=== PATIENT | male | born 1945 | race Caucasian/White ===

== ENCOUNTER 2021-06-29 12:58 | Inpatient (IN) | payer MEDICARE ==
[~2021-06-29] VITALS: Ht 172.7 cm; Wt 105.5 kg
[2021-06-29] MEDS ORDERED: dexamethasone sod phosphate 10mg/ml inj IV STA (13:09)
[2021-06-29] MEDS ORDERED: albuterol 2.5 MG/3 ML nebule CONTNEB PRN (13:10)
[2021-06-29 13:21] LABS: BASOPHILS % (AUTO) 0.6 % (0-1); EOSINOPHILS % (AUTO) 0.3 % (0-6); HEMATOCRIT 45.9 % (42.0-52.0); HEMOGLOBIN 14.9 g/dl (14.0-17.9); LYMPHOCYTES # (AUTO) 0.7 X10'3 (1.1-4.8); LYMPHOCYTES % (AUTO) 18.4 % (21-51); MEAN CORPUSCULAR HEMOGLOBIN 29.9 PG (27.0-31.0); MEAN CORPUSCULAR HGB CONC 32.5 g/dL (33.0-36.5); MEAN CORPUSCULAR VOLUME 91.9 FL (78-98); MEAN PLATELET VOLUME 8.3 FL (7.4-10.4); MONOCYTES # (AUTO) 0.4 X10'3 (0-0.9); MONOCYTES % (AUTO) 9.5 % (2-12); NEUTROPHILS # (AUTO) 2.7 X10'3 (1.8-7.7); NEUTROPHILS % (AUTO) 71.2 % (42-75); PLATELET COUNT 119 X10'3 (140-440); RED CELL DISTRIBUTION WIDTH 14.9 % (11.5-14.5); WHITE BLOOD COUNT 3.8 X10'3 (4.5-11.0)
[2021-06-29 13:37] LABS: ALBUMIN 3.1 G/DL (3.4-5.0); ANION GAP 7 (8-16); BLOOD UREA NITROGEN 42 MG/DL (7-18); BUN/CREATININE RATIO 19.9 (5.4-32.0); CALCIUM 8.1 MG/DL (8.5-10.1); CHLORIDE 102 MMOL/L (99-107); CREATININE 2.11 MG/DL (0.60-1.10); GLUCOSE 245 MG/DL (70-104); POTASSIUM 4.2 MMOL/L (3.5-5.1); SODIUM 140 MMOL/L (135-145); TOTAL CARBON DIOXIDE 30.9 MMOL/L (24-32); TROPONIN I < 0.04 NG/ML (0.0-0.05); eGFR 31 ML/MIN
[2021-06-29] MEDS ORDERED: ondansetron/PF 4mg/2ml inj IV PRN (13:55)
[2021-06-29] MEDS ORDERED: magnesium hydroxide 30ml (MOM) UD suspension PO PRN (13:55)
[2021-06-29] MEDS ORDERED: mag hydrox/Alum hydrox/simeth 30ml oral suspension PO PRN (13:55)
[2021-06-29] MEDS ORDERED: acetaminophen 325mg tablet PO PRN (13:55)
[2021-06-29] MEDS ORDERED: ALLO300T8 PO (15:04)
[2021-06-29] MEDS ORDERED: HYDR-3968 PO (15:04)
[2021-06-29] MEDS ORDERED: FAMO20TA8 PO (15:04)
[2021-06-29] MEDS ORDERED: LEVO50TA8 PO (15:04)
[2021-06-29] MEDS ORDERED: GLIM2TAB6 PO (15:04)
[2021-06-29] MEDS ORDERED: FLO0.4C PO (15:04)
[2021-06-29] MEDS ORDERED: GABA600T13 PO (15:04)
[2021-06-29] MEDS ORDERED: METF-950 PO (15:04)
[2021-06-29] MEDS ORDERED: PRAV40TA3 PO (15:04)
[2021-06-29] MEDS ORDERED: ROPI0.2540 PO (15:04)
[2021-06-29] MEDS ORDERED: LISI1TAB51 PO (15:04)
[2021-06-29] MEDS: normal saline 1000ml 1,000 ML IV SCH ×2 (15:23→23:41)
[2021-06-29 17:15] VITALS: BP 114/69
--- NOTE | 2021-06-29 17:40 | NUR ---
Dr Mckay has seen patient. I pointed out rhythm not looking like sinus. Dr Mckay says it is fine, he is having no chest pain. Will monitor.
--- NOTE | 2021-06-29 17:42 | NUR ---
Trops in ED were also negative.
[2021-06-29] MEDS ORDERED: dextrose 50%-water 50ml dispensing syringe IV PRN ×2 (17:45)
[2021-06-29] MEDS ORDERED: dextrose ORAL solution 15 GM/59 ML bottle PO PRN ×2 (17:45)
[2021-06-29] MEDS ORDERED: MESSAGE TO PHARMACY PO ONE (17:45)
[2021-06-29] MEDS ORDERED: glucagon, human recombinant 1mg kit SUBCUT PRN (17:45)
[2021-06-29 18:00] VITALS: BP 110/69
--- NOTE | 2021-06-29 18:00 | NUR ---
Report given to Jenelle HANKINS. All questions answered. Pt finished eating dinner. Sitting up, no changes at this time. Awake and alert, no distress
--- NOTE | 2021-06-29 18:30 | NUR ---
Patient in room COVID 08. I have received report from Margoth HANKINS and had the opportunity to ask questions and assume patient care.
[2021-06-29] MEDS: insulin Lispro (HumaLOG) vial - multi-dose SQ SCH ×2 (19:51→22:46)
[2021-06-29] MEDS: docusate sod 100mg capsule PO SCH (20:10)
[2021-06-29] MEDS: dexamethasone sod phosphate 10mg/ml inj IV SCH (20:10)
[2021-06-29] MEDS: gabapentin 300mg capsule PO SCH (20:11)
[2021-06-29] MEDS: ROPINIRole 0.25mg tablet PO SCH (20:12)
[2021-06-29] MEDS: enoxaparin 30mg/0.3ml syringe SQ SCH (20:15)
[2021-06-29 22:00] VITALS: BP 125/71
[2021-06-29] MEDS: insulin glargine (Lantus) pen - multi-dose SQ SCH (22:43)
[2021-06-30 02:00] VITALS: BP 107/78
[2021-06-30 06:23] LABS: BASOPHILS % (AUTO) 0.2 % (0-1); EOSINOPHILS % (AUTO) 0 % (0-6); HEMOGLOBIN 14.7 g/dl (14.0-17.9); LYMPHOCYTES # (AUTO) 0.6 X10'3 (1.1-4.8); LYMPHOCYTES % (AUTO) 14.3 % (21-51); MEAN CORPUSCULAR HGB CONC 32.6 g/dL (33.0-36.5); MEAN CORPUSCULAR VOLUME 91.9 FL (78-98); MEAN PLATELET VOLUME 8.5 FL (7.4-10.4); MONOCYTES # (AUTO) 0.3 X10'3 (0-0.9); MONOCYTES % (AUTO) 6.5 % (2-12); NEUTROPHILS # (AUTO) 3.1 X10'3 (1.8-7.7); PLATELET COUNT 133 X10'3 (140-440); RED BLOOD COUNT 4.89 X10'6 (4.70-6.10); RED CELL DISTRIBUTION WIDTH 15.1 % (11.5-14.5); WHITE BLOOD COUNT 3.9 X10'3 (4.5-11.0)
--- NOTE | 2021-06-30 06:30 | NUR ---
Patient in room COVID 08. I have received report from Jenelle HANKINS and had the opportunity to ask questions and assume patient care.
--- NOTE | 2021-06-30 06:30 | NUR ---
Problems reprioritized. Patient report given, questions answered & plan of care reviewed with Jeanmarie RN.
[2021-06-30 06:40] LABS: D-DIMER 0.36 MG/L FEU (0-0.50)
[2021-06-30 06:44] LABS: ALBUMIN 2.8 G/DL (3.4-5.0); ANION GAP 9 (8-16); BLOOD UREA NITROGEN 40 MG/DL (7-18); BUN/CREATININE RATIO 27.8 (5.4-32.0); C-REACTIVE PROTEIN 7.24 MG/DL (0.0-0.5); CALCIUM 7.9 MG/DL (8.5-10.1); CHLORIDE 105 MMOL/L (99-107); CREATININE 1.44 MG/DL (0.60-1.10); GLUCOSE 356 MG/DL (70-104); LACTATE DEHYDROGENASE 299 U/L (85-227); POTASSIUM 4.6 MMOL/L (3.5-5.1); SODIUM 140 MMOL/L (135-145); TOTAL CARBON DIOXIDE 26.1 MMOL/L (24-32); eGFR 47 ML/MIN
[2021-06-30 08:00] VITALS: BP 125/74
[2021-06-30] MEDS: pravastatin 40mg tablet PO SCH (08:43)
[2021-06-30] MEDS: dexamethasone sod phosphate 10mg/ml inj IV SCH (08:43)
[2021-06-30] MEDS: docusate sod 100mg capsule PO SCH (08:43)
[2021-06-30] MEDS: HYDROchlorothiazide 12.5mg capsule PO SCH (08:44)
[2021-06-30] MEDS: famotidine 20mg tablet PO SCH (08:44)
[2021-06-30] MEDS: tamsulosin 0.4mg capsule PO SCH (08:44)
[2021-06-30] MEDS: levoTHYROXINE 25mcg tablet PO SCH (08:46)
[2021-06-30] MEDS: gabapentin 300mg capsule PO SCH ×3 (08:47→21:17)
[2021-06-30] MEDS: allopurinol 300 MG tablet PO SCH (08:47)
[2021-06-30] MEDS: lisinopril 20mg tablet PO SCH (08:48)
[2021-06-30] MEDS: enoxaparin 30mg/0.3ml syringe SQ SCH ×2 (08:49→21:17)
[2021-06-30] MEDS: insulin Lispro (HumaLOG) vial - multi-dose SQ SCH ×4 (09:00→22:09)
[2021-06-30] MEDS: normal saline 1000ml 1,000 ML IV SCH ×2 (10:16→21:17)
[2021-06-30 11:28] VITALS: BP 117/67
--- NOTE | 2021-06-30 12:56 | NUR ---
Diabetes Consult: A1C 9. Pt admitted w/ +DANK. Communicated w/ Pt via TC to provide verbal diabetes education, pt was receptive of information and states he needs to make changes in his lifestyle. Will provide Pt w/ written education w/ RD contact info via mail. Will continue to monitor. Addendum: 06/30/21 at [address] Amended: Links added.
[2021-06-30 16:01] VITALS: BP 120/67
[2021-06-30] MEDS: methylPREDNISolone sod succ 125mg/2ml vial IV SCH (16:09)
--- NOTE | 2021-06-30 18:30 | NUR ---
Patient in room COVID 08. I have received report from Jeanmarie HANKINS and had the opportunity to ask questions and assume patient care.
[2021-06-30 20:00] VITALS: BP 110/73
--- NOTE | 2021-06-30 20:23 | NUR ---
Patients daughter Raimundo called to check in on patients progress. Pt. gave the OK to release information. Will add her name to S BAR
[2021-06-30] MEDS: ROPINIRole 0.25mg tablet PO SCH (21:18)
[2021-06-30] MEDS: insulin glargine (Lantus) pen - multi-dose SQ SCH (22:10)
[2021-07-01 00:30] VITALS: BP 136/84
[2021-07-01] MEDS: methylPREDNISolone sod succ 125mg/2ml vial IV SCH ×3 (00:55→16:26)
[2021-07-01 04:50] VITALS: BP 112/88
[2021-07-01] MEDS: normal saline 1000ml 1,000 ML IV SCH (05:34)
--- NOTE | 2021-07-01 06:25 | NUR ---
Problems reprioritized. Patient report given, questions answered & plan of care reviewed with Fransico HANKINS.
[2021-07-01] MEDS: tamsulosin 0.4mg capsule PO SCH (08:00)
[2021-07-01 08:40] LABS: BASOPHILS % (AUTO) 0.1 % (0-1); EOSINOPHILS % (AUTO) 0 % (0-6); HEMATOCRIT 47.4 % (42.0-52.0); HEMOGLOBIN 15.4 g/dl (14.0-17.9); LYMPHOCYTES # (AUTO) 0.8 X10'3 (1.1-4.8); LYMPHOCYTES % (AUTO) 10.4 % (21-51); MEAN CORPUSCULAR HEMOGLOBIN 29.8 PG (27.0-31.0); MEAN CORPUSCULAR HGB CONC 32.5 g/dL (33.0-36.5); MEAN CORPUSCULAR VOLUME 91.6 FL (78-98); MEAN PLATELET VOLUME 8.6 FL (7.4-10.4); MONOCYTES # (AUTO) 0.6 X10'3 (0-0.9); MONOCYTES % (AUTO) 7.2 % (2-12); NEUTROPHILS # (AUTO) 6.5 X10'3 (1.8-7.7); NEUTROPHILS % (AUTO) 82.3 % (42-75); PLATELET COUNT 129 X10'3 (140-440); RED BLOOD COUNT 5.18 X10'6 (4.70-6.10); RED CELL DISTRIBUTION WIDTH 14.9 % (11.5-14.5); WHITE BLOOD COUNT 7.9 X10'3 (4.5-11.0)
[2021-07-01 09:02] LABS: ALBUMIN 2.7 G/DL (3.4-5.0); ANION GAP 10 (8-16); BLOOD UREA NITROGEN 39 MG/DL (7-18); BUN/CREATININE RATIO 28.7 (5.4-32.0); CALCIUM 7.6 MG/DL (8.5-10.1); CHLORIDE 107 MMOL/L (99-107); CREATININE 1.36 MG/DL (0.60-1.10); GLUCOSE 255 MG/DL (70-104); POTASSIUM 4.2 MMOL/L (3.5-5.1); SODIUM 143 MMOL/L (135-145); eGFR 51 ML/MIN
[2021-07-01] MEDS: docusate sodium 100mg/10ml UD cup PO SCH ×2 (09:22→22:39)
[2021-07-01] MEDS: enoxaparin 30mg/0.3ml syringe SQ SCH ×2 (09:22→22:40)
[2021-07-01] MEDS: levoTHYROXINE 25mcg tablet PO SCH (09:23)
[2021-07-01] MEDS: lisinopril 20mg tablet PO SCH (09:23)
[2021-07-01] MEDS: famotidine 20mg tablet PO SCH (09:23)
[2021-07-01] MEDS: gabapentin 300mg capsule PO SCH ×3 (09:23→22:40)
[2021-07-01] MEDS: pravastatin 40mg tablet PO SCH (09:24)
[2021-07-01] MEDS: HYDROchlorothiazide 12.5mg capsule PO SCH (09:24)
[2021-07-01] MEDS: allopurinol 300 MG tablet PO SCH (09:24)
[2021-07-01] MEDS: insulin Lispro (HumaLOG) vial - multi-dose SQ SCH ×3 (09:38→22:37)
[2021-07-01] MEDS: furosemide 20 MG/2 ML vial IV SCH (10:50)
[2021-07-01 19:00] VITALS: BP 124/63
[2021-07-01] MEDS: insulin glargine (Lantus) pen - multi-dose SQ SCH (22:39)
[2021-07-01] MEDS: ROPINIRole 0.25mg tablet PO SCH (22:40)
[2021-07-02] VITALS: BP 148/94
[2021-07-02] MEDS: methylPREDNISolone sod succ 125mg/2ml vial IV SCH ×3 (00:59→16:57)
[2021-07-02] MEDS: guaiFENesin/DM 10ml UD oral syrup PO PRN (05:20)
[2021-07-02] MEDS: HYDROcodone/acetaminophen 7.5MG/325MG per 15ml UD CUP PO PRN ×2 (05:34→22:21)
--- NOTE | 2021-07-02 05:35 | NUR ---
Patient states he has not seen an MD and would like to speak with him today. States he has been lying in bed for 7 days, needs bolts in his back, has torn meniscus in left knee and cannot lay in bed like this. Advised we have pain medication we can give him, he simply needs to ask when he's painful. Patient also given robitussin for cough. Patient has developed rust colored sputum.
--- NOTE | 2021-07-02 06:15 | NUR ---
Patient in room COVID 08. I have received report from Clover HANKINS and had the opportunity to ask questions and assume patient care.
--- NOTE | 2021-07-02 06:44 | NUR ---
Problems reprioritized. Patient report given, questions answered & plan of care reviewed with CR Carlson.
[2021-07-02 08:00] VITALS: BP 138/88
[2021-07-02] MEDS: HYDROchlorothiazide 12.5mg capsule PO SCH (08:10)
[2021-07-02] MEDS: gabapentin 300mg capsule PO SCH ×3 (08:10→22:09)
[2021-07-02] MEDS: tamsulosin 0.4mg capsule PO SCH (08:11)
[2021-07-02] MEDS: lisinopril 20mg tablet PO SCH (08:11)
[2021-07-02] MEDS: famotidine 20mg tablet PO SCH (08:11)
[2021-07-02] MEDS: docusate sodium 100mg/10ml UD cup PO SCH ×2 (08:11→19:54)
[2021-07-02] MEDS: levoTHYROXINE 25mcg tablet PO SCH (08:11)
[2021-07-02] MEDS: furosemide 20 MG/2 ML vial IV SCH ×2 (08:12→19:48)
[2021-07-02] MEDS: pravastatin 40mg tablet PO SCH (08:14)
[2021-07-02] MEDS: allopurinol 300 MG tablet PO SCH (08:14)
[2021-07-02 08:36] LABS: BASOPHILS % (AUTO) 0.1 % (0-1); EOSINOPHILS % (AUTO) 0 % (0-6); HEMATOCRIT 46.3 % (42.0-52.0); HEMOGLOBIN 14.9 g/dl (14.0-17.9); LYMPHOCYTES # (AUTO) 0.6 X10'3 (1.1-4.8); LYMPHOCYTES % (AUTO) 7.5 % (21-51); MEAN CORPUSCULAR HEMOGLOBIN 29.6 PG (27.0-31.0); MEAN CORPUSCULAR HGB CONC 32.1 g/dL (33.0-36.5); MEAN CORPUSCULAR VOLUME 92.2 FL (78-98); MEAN PLATELET VOLUME 8.7 FL (7.4-10.4); MONOCYTES # (AUTO) 0.6 X10'3 (0-0.9); MONOCYTES % (AUTO) 7.5 % (2-12); NEUTROPHILS # (AUTO) 6.6 X10'3 (1.8-7.7); NEUTROPHILS % (AUTO) 84.9 % (42-75); PLATELET COUNT 161 X10'3 (140-440); RED BLOOD COUNT 5.02 X10'6 (4.70-6.10); RED CELL DISTRIBUTION WIDTH 15.4 % (11.5-14.5); WHITE BLOOD COUNT 7.8 X10'3 (4.5-11.0)
[2021-07-02 09:00] LABS: ALBUMIN 2.6 G/DL (3.4-5.0); ANION GAP 10 (8-16); BLOOD UREA NITROGEN 34 MG/DL (7-18); BUN/CREATININE RATIO 27.4 (5.4-32.0); CALCIUM 7.7 MG/DL (8.5-10.1); CHLORIDE 106 MMOL/L (99-107); CREATININE 1.24 MG/DL (0.60-1.10); GLUCOSE 324 MG/DL (70-104); POTASSIUM 3.8 MMOL/L (3.5-5.1); SODIUM 147 MMOL/L (135-145); TOTAL CARBON DIOXIDE 30.6 MMOL/L (24-32); eGFR 56 ML/MIN
[2021-07-02] MEDS: insulin Lispro (HumaLOG) vial - multi-dose SQ SCH ×4 (09:22→22:17)
[2021-07-02] MEDS: enoxaparin 30mg/0.3ml syringe SQ SCH ×2 (10:25→19:54)
--- NOTE | 2021-07-02 17:27 | NUR ---
PAGER ID: [phone] MESSAGE: Re: Deshawn Morrow. Room: [address] Pt wants a sleep aid for tonight. Can I put order in for [facility]? -[facility] COVID #[id number] -Dr. Anna paged concerning Sleep aid for Pt.
--- NOTE | 2021-07-02 18:40 | NUR ---
Problems reprioritized. Patient report given, questions answered & plan of care reviewed with Dell HANKINS.
--- NOTE | 2021-07-02 19:18 | NUR ---
I have received report from CR Duran and had the opportunity to ask questions and assume patient care.
[2021-07-02 20:00] VITALS: BP 136/65
[2021-07-02] MEDS: ROPINIRole 0.25mg tablet PO SCH (22:08)
[2021-07-02] MEDS: insulin glargine (Lantus) pen - multi-dose SQ SCH (22:19)
[2021-07-03] VITALS: BP 142/90
[2021-07-03 05:59] LABS: ALBUMIN 2.5 G/DL (3.4-5.0); ANION GAP 9 (8-16); BLOOD UREA NITROGEN 35 MG/DL (7-18); BUN/CREATININE RATIO 30.4 (5.4-32.0); CALCIUM 8.3 MG/DL (8.5-10.1); CHLORIDE 104 MMOL/L (99-107); CREATININE 1.15 MG/DL (0.60-1.10); GLUCOSE 218 MG/DL (70-104); POTASSIUM 3.4 MMOL/L (3.5-5.1); SODIUM 145 MMOL/L (135-145); TOTAL CARBON DIOXIDE 32.3 MMOL/L (24-32); eGFR 62 ML/MIN
[2021-07-03 06:03] LABS: BASOPHILS % (AUTO) 0.2 % (0-1); EOSINOPHILS % (AUTO) 0 % (0-6); HEMATOCRIT 50.1 % (42.0-52.0); HEMOGLOBIN 16.4 g/dl (14.0-17.9); LYMPHOCYTES # (AUTO) 0.5 X10'3 (1.1-4.8); LYMPHOCYTES % (AUTO) 5.9 % (21-51); MEAN CORPUSCULAR HGB CONC 32.8 g/dL (33.0-36.5); MEAN CORPUSCULAR VOLUME 91.4 FL (78-98); MEAN PLATELET VOLUME 8.6 FL (7.4-10.4); MONOCYTES # (AUTO) 0.6 X10'3 (0-0.9); MONOCYTES % (AUTO) 6.6 % (2-12); NEUTROPHILS # (AUTO) 8.1 X10'3 (1.8-7.7); NEUTROPHILS % (AUTO) 87.3 % (42-75); PLATELET COUNT 193 X10'3 (140-440); RED BLOOD COUNT 5.48 X10'6 (4.70-6.10); WHITE BLOOD COUNT 9.2 X10'3 (4.5-11.0)
[2021-07-03 08:00] VITALS: BP 129/78
--- NOTE | 2021-07-03 08:20 | NUR ---
Problems reprioritized. Patient report given, questions answered & plan of care reviewed with Raimundo HANKINS
[2021-07-03] MEDS: methylPREDNISolone sod succ 125mg/2ml vial IV SCH ×4 (10:50→23:22)
[2021-07-03] MEDS: furosemide 20 MG/2 ML vial IV SCH ×2 (10:50→20:07)
[2021-07-03] MEDS: docusate sodium 100mg/10ml UD cup PO SCH ×2 (10:51→20:07)
[2021-07-03] MEDS: tamsulosin 0.4mg capsule PO SCH (10:51)
[2021-07-03] MEDS: HYDROcodone/acetaminophen 7.5MG/325MG per 15ml UD CUP PO PRN ×2 (10:51→23:23)
[2021-07-03] MEDS: enoxaparin 30mg/0.3ml syringe SQ SCH ×2 (10:51→20:07)
[2021-07-03] MEDS: allopurinol 300 MG tablet PO SCH (10:51)
[2021-07-03] MEDS: famotidine 20mg tablet PO SCH (10:52)
[2021-07-03] MEDS: pravastatin 40mg tablet PO SCH (10:52)
[2021-07-03] MEDS: lisinopril 20mg tablet PO SCH (10:52)
[2021-07-03] MEDS: levoTHYROXINE 25mcg tablet PO SCH (10:52)
[2021-07-03] MEDS: gabapentin 300mg capsule PO SCH ×2 (10:52→12:43)
[2021-07-03] MEDS: HYDROchlorothiazide 12.5mg capsule PO SCH (10:52)
[2021-07-03 11:33] VITALS: BP 146/77
[2021-07-03 13:02] LABS: D-DIMER 0.74 MG/L FEU (0-0.50)
[2021-07-03] MEDS: insulin Lispro (HumaLOG) vial - multi-dose SQ SCH ×3 (13:11→22:46)
[2021-07-03 15:34] VITALS: BP 130/71
[2021-07-03 18:30] VITALS: BP 121/70
--- NOTE | 2021-07-03 18:40 | NUR ---
Patient in room COVID 08. I have received report from Raimundo HANKINS and had the opportunity to ask questions and assume patient care.
[2021-07-03] MEDS: ROPINIRole 0.25mg tablet PO SCH (20:07)
[2021-07-03] MEDS: gabapentin 400mg capsule PO SCH (20:07)
[2021-07-03 22:00] VITALS: BP 111/72
[2021-07-03] MEDS: insulin glargine (Lantus) pen - multi-dose SQ SCH (22:44)
--- NOTE | 2021-07-03 23:05 | NUR ---
Pts code status is currently DNR. As I went to put on pts DNR band. I verified that is what his wishes were, he stated to me that he wishes to change his mind and have all life saving measures preformed if something were to happen. He would like to be a FULL CODE. Night hospitalist is aware, content checker witnessed the pt stating his wishes to be changed.
--- NOTE | 2021-07-03 23:10 | NUR ---
Patient told me and primary RN that he wishes to be full code and have all life saving measures attempted.
--- NOTE | 2021-07-04 01:00 | NUR ---
Pts O2 demands increasing, he is on the High flow NC (salter) on 15L with his O2 ranging about 85%-90%. Intermittently he needs the non-rebreather as well as the salter cannula to recover from any excessive movement. Will continue to monitor.
[2021-07-04 02:00] VITALS: BP 119/78
[2021-07-04 07:05] LABS: BASOPHILS % (AUTO) 0.1 % (0-1); EOSINOPHILS % (AUTO) 0 % (0-6); HEMATOCRIT 50.4 % (42.0-52.0); HEMOGLOBIN 16.5 g/dl (14.0-17.9); LYMPHOCYTES # (AUTO) 0.4 X10'3 (1.1-4.8); LYMPHOCYTES % (AUTO) 4.2 % (21-51); MEAN CORPUSCULAR HEMOGLOBIN 29.8 PG (27.0-31.0); MEAN CORPUSCULAR HGB CONC 32.8 g/dL (33.0-36.5); MEAN CORPUSCULAR VOLUME 90.9 FL (78-98); MEAN PLATELET VOLUME 8.8 FL (7.4-10.4); MONOCYTES # (AUTO) 0.7 X10'3 (0-0.9); MONOCYTES % (AUTO) 7.2 % (2-12); NEUTROPHILS # (AUTO) 9.1 X10'3 (1.8-7.7); NEUTROPHILS % (AUTO) 88.5 % (42-75); PLATELET COUNT 237 X10'3 (140-440); RED BLOOD COUNT 5.55 X10'6 (4.70-6.10); RED CELL DISTRIBUTION WIDTH 14.6 % (11.5-14.5); WHITE BLOOD COUNT 10.3 X10'3 (4.5-11.0)
[2021-07-04 07:16] LABS: D-DIMER 0.79 MG/L FEU (0-0.50)
[2021-07-04 07:45] LABS: ALBUMIN 2.6 G/DL (3.4-5.0); ANION GAP 11 (8-16); BLOOD UREA NITROGEN 46 MG/DL (7-18); BUN/CREATININE RATIO 35.1 (5.4-32.0); C-REACTIVE PROTEIN 1.82 MG/DL (0.0-0.5); CHLORIDE 104 MMOL/L (99-107); CREATININE 1.31 MG/DL (0.60-1.10); GLUCOSE 335 MG/DL (70-104); POTASSIUM 3.5 MMOL/L (3.5-5.1); SODIUM 147 MMOL/L (135-145); TOTAL CARBON DIOXIDE 31.8 MMOL/L (24-32); eGFR 53 ML/MIN
[2021-07-04 08:00] VITALS: BP 151/88
[2021-07-04] MEDS: docusate sodium 100mg/10ml UD cup PO SCH ×2 (08:00→20:24)
[2021-07-04] MEDS: gabapentin 400mg capsule PO SCH ×2 (09:35→20:23)
[2021-07-04] MEDS: levoTHYROXINE 25mcg tablet PO SCH (09:35)
[2021-07-04] MEDS: allopurinol 300 MG tablet PO SCH (09:35)
[2021-07-04] MEDS: tamsulosin 0.4mg capsule PO SCH (09:35)
[2021-07-04] MEDS: famotidine 20mg tablet PO SCH (09:35)
[2021-07-04] MEDS: lisinopril 20mg tablet PO SCH (09:36)
[2021-07-04] MEDS: pravastatin 40mg tablet PO SCH (09:36)
[2021-07-04] MEDS: furosemide 20 MG/2 ML vial IV SCH (09:37)
[2021-07-04] MEDS: methylPREDNISolone sod succ 125mg/2ml vial IV SCH ×2 (09:40→17:46)
[2021-07-04] MEDS: HYDROcodone/acetaminophen 7.5MG/325MG per 15ml UD CUP PO PRN ×2 (09:47→17:45)
[2021-07-04] MEDS: insulin Lispro (HumaLOG) vial - multi-dose SQ SCH ×4 (09:57→22:28)
[2021-07-04] MEDS: enoxaparin 30mg/0.3ml syringe SQ SCH ×2 (09:59→20:24)
[2021-07-04 11:00] VITALS: BP 116/72
--- NOTE | 2021-07-04 12:53 | NUR ---
PAGER ID: [phone] MESSAGE: Cristhian Garcia on 100% HIGH FLOW N/C. DESATS TO 85% AT TIMES BUT RECOVERS QUICKLY. mOSTLY DURING SLEEP- PERIODS OF APNEA. RT AWARE. SHAUNNA [phone]
--- NOTE | 2021-07-04 14:11 | NUR ---
Spoke with RT. States better to have pt. fluctuate to mid 80s on high flow n/c than to put on BIPAP as BIPAP "ruin their lungs". MD aware and no new orders at this time. Will cont. to monitor pt. while on my shift.
--- NOTE | 2021-07-04 14:22 | NUR ---
Initial: Pt admit with acute hypoxemic respiratory failure d/t COVID PNA and RASHID. Pt on a CHO controlled diet with slightly fluctuating PO intake, overall averaging 50-75% not meeting estimated nutrient needs. Recommend Ensure Enlive TID for additional kcal and protein. ONS to be sent pending physician approval in EMR. LBM 07/01 per physical assessment though noted routine Colace was held this morning d/t diarrhea per med list. Will continue to follow closely and monitor need for further nutrition intervention. Recommendations: 1) Continue CHO controlled diet; encourage PO intake 2) Ensure Enlive TID, pending MD approval in EMR 3) Routine bowel care 4) Weekly scaled weights Addendum: 07/04/21 at [address] Amended: Links added.
--- NOTE | 2021-07-04 17:21 | NUR ---
PAGER ID: [phone] MESSAGE: Nikki [phone]- please change code status of pt in covid bed 8, Deshawn Morrow. Needs to be FULL CODE. Thank you
--- NOTE | 2021-07-04 17:48 | NUR ---
PAGER ID: [phone] MESSAGE: Nikki [phone]- re Cristhian Hess in covid bed 8- continues to desat, on HFNC 100 along with NRB mask. RT states he may need bipap at some time tonight. Please call me
[2021-07-04 18:00] VITALS: BP 140/67
[2021-07-04] MEDS: lactose-reduced food (Ensure Enlive) - 237ml bottle PO SCH (18:00)
--- NOTE | 2021-07-04 18:27 | NUR ---
gAVE REPORT TO Theodore Pham
--- NOTE | 2021-07-04 18:46 | NUR ---
I have received report from CR Pollock and had the opportunity to ask questions and assume patient care.
--- NOTE | 2021-07-04 18:58 | NUR ---
ABG and Bipap order noted. Visited Patient to draw ABG. Patient is having dinner, SpO2 is 96% and respiratory distress is mild. ABG held until discussion with MD or worsening condition. BiPAP ordered PRN and is not needed at this time. This has been discussed with and agreed to by his RN.
[2021-07-04] MEDS: ROPINIRole 0.25mg tablet PO SCH (20:24)
[2021-07-04] MEDS: HYDROcodone/acetaminophen 5mg/325mg tablet PO PRN (20:24)
--- NOTE | 2021-07-04 21:42 | NUR ---
Patient c/o heat from HFNC. Heater switched off. Addendum: 07/04/21 at 2144 by Osito Melgar RT Amended: Links added.
[2021-07-04] MEDS: insulin glargine (Lantus) pen - multi-dose SQ SCH (22:01)
[2021-07-04 23:00] VITALS: BP 125/83
[2021-07-05] MEDS: methylPREDNISolone sod succ 125mg/2ml vial IV SCH ×3 (00:24→16:12)
[2021-07-05] MEDS: LORazepam 2 mg/ml vial IV PRN (02:55)
[2021-07-05 02:56] LABS: ABG BASE EXCESS 9.8 mmol/L (-2.0-2.0); ABG HCO3 33.3 mmol/L (22.0-26.0); ABG OXYGEN SATURATION 90.7 % (94-97); ABG PCO2 (T) 39.6 mmHg (35.0-48.0); ALLEN'S TEST Modified; FCOHb 0.6 % (0.0-3.9); FMetHb 0.1 % (0.0-1.5); FO2Hb 90.1 % (94-97); PATIENT TEMPERATURE 36.7; TOTAL HEMOGLOBIN 17.3 G/dl (14.0-18.0)
--- NOTE | 2021-07-05 03:12 | NUR ---
Spoke with respiratory therapist was paged because patient had dropped to 70% on high flow tower, patient had non rebreather at bedside. I put that on along as well, patient recovered to 90-93% but would dip down to 83-85%. Respiratory therapist did ABG, and placed patient on bipap. ABG came back critical. PH 7.53 pc)[address] Sanchez informed, order received to repeat ABG in an 1hr. Patient resting comfortably, saturating at 97% on bipap. Will continue to monitor
--- NOTE | 2021-07-05 03:21 | NUR ---
SpO2 97% on BiPAP, FiO2 decreased to 90% Addendum: 07/05/21 at 0322 by Osito Melgar RT Amended: Links added.
[2021-07-05 04:00] VITALS: BP 118/60
[2021-07-05] MEDS ORDERED: metoprolol tartrate 1mg/ml inj IV ONE (04:20)
[2021-07-05 04:29] LABS: ABG HCO3 34.8 mmol/L (22.0-26.0); ABG OXYGEN SATURATION 92.4 % (94-97); ABG PO2 (T) 60.1 mmHg (75.0-100.0); ALLEN'S TEST Modified; FCOHb 0.5 % (0.0-3.9); FMetHb 0.2 % (0.0-1.5); FO2Hb 91.8 % (94-97); PATIENT TEMPERATURE 37.3; RESPIRATORY RATE 20 b/min
--- NOTE | 2021-07-05 04:30 | NUR ---
orders received for heart rate fluctuating between 100-183, Metoprol 5mg IV once for hear rate above 100. Heart rate went down to below 100 and has sustained below. Medication not given at this time
[2021-07-05] MEDS ORDERED: acetaZOLAMIDE IV 500mg inj IV ONE (04:40)
--- NOTE | 2021-07-05 06:58 | NUR ---
Problems reprioritized. Patient report given, questions answered & plan of care reviewed with CR Valiente.
[2021-07-05] MEDS: gabapentin 400mg capsule PO SCH ×2 (07:49→20:00)
[2021-07-05] MEDS: levoTHYROXINE 25mcg tablet PO SCH (07:49)
[2021-07-05] MEDS: lisinopril 20mg tablet PO SCH (07:49)
[2021-07-05] MEDS: allopurinol 300 MG tablet PO SCH (07:49)
[2021-07-05] MEDS: HYDROcodone/acetaminophen 5mg/325mg tablet PO PRN ×2 (07:50→16:12)
[2021-07-05] MEDS: famotidine 20mg tablet PO SCH (07:50)
[2021-07-05] MEDS: tamsulosin 0.4mg capsule PO SCH (07:50)
[2021-07-05] MEDS: docusate sodium 100mg/10ml UD cup PO SCH ×3 (07:50→20:00)
[2021-07-05] MEDS: enoxaparin 30mg/0.3ml syringe SQ SCH ×2 (07:51→20:00)
[2021-07-05] MEDS: furosemide 20 MG/2 ML vial IV SCH (07:53)
[2021-07-05] MEDS: lactose-reduced food (Ensure Enlive) - 237ml bottle PO SCH ×3 (08:00→18:10)
--- NOTE | 2021-07-05 08:00 | NUR ---
Patient anxious with bipap, offered patient ativan, patient refused
[2021-07-05] MEDS: insulin Lispro (HumaLOG) vial - multi-dose SQ SCH ×3 (08:42→19:54)
[2021-07-05] MEDS: pravastatin 40mg tablet PO SCH (10:47)
[2021-07-05 11:00] VITALS: BP 140/75
--- NOTE | 2021-07-05 12:44 | NUR ---
Rounds with Dr Guy Advised of HR between 101-180's over night: no new orders - continue to monitor.
[2021-07-05 15:00] VITALS: BP 163/89
--- NOTE | 2021-07-05 18:37 | NUR ---
Problems reprioritized. Patient report given, questions answered & plan of care reviewed with Hope HANKINS.
[2021-07-05 19:00] VITALS: BP 141/80
[2021-07-05] MEDS: ROPINIRole 0.25mg tablet PO SCH (21:00)
[2021-07-05 23:00] VITALS: BP 170/76
[2021-07-05] MEDS: insulin glargine (Lantus) pen - multi-dose SQ SCH (23:07)
[2021-07-06] MEDS: methylPREDNISolone sod succ 125mg/2ml vial IV SCH ×3 (00:21→15:25)
[2021-07-06] MEDS: HYDROcodone/acetaminophen 7.5MG/325MG per 15ml UD CUP PO PRN (01:28)
[2021-07-06 03:00] VITALS: BP 126/81
[2021-07-06 06:00] VITALS: BP 140/45
--- NOTE | 2021-07-06 06:30 | NUR ---
Patient in room COVID 08. I have received report from lefty dorantes and had the opportunity to ask questions and assume patient care.
[2021-07-06 07:59] LABS: D-DIMER 1.68 MG/L FEU (0-0.50)
[2021-07-06] MEDS: furosemide 20 MG/2 ML vial IV SCH (08:04)
[2021-07-06] MEDS: tamsulosin 0.4mg capsule PO SCH (08:14)
[2021-07-06] MEDS: gabapentin 400mg capsule PO SCH ×2 (08:14→19:21)
[2021-07-06] MEDS: levoTHYROXINE 25mcg tablet PO SCH (08:15)
[2021-07-06] MEDS: lisinopril 20mg tablet PO SCH (08:15)
[2021-07-06] MEDS: allopurinol 300 MG tablet PO SCH (08:16)
[2021-07-06] MEDS: famotidine 20mg tablet PO SCH (08:16)
[2021-07-06] MEDS: pravastatin 40mg tablet PO SCH (08:16)
[2021-07-06] MEDS: enoxaparin 30mg/0.3ml syringe SQ SCH ×2 (08:17→19:21)
[2021-07-06] MEDS: docusate sodium 100mg/10ml UD cup PO SCH ×2 (08:18→19:21)
[2021-07-06] MEDS: lactose-reduced food (Ensure Enlive) - 237ml bottle PO SCH ×2 (08:18→09:18)
[2021-07-06] MEDS: insulin Lispro (HumaLOG) vial - multi-dose SQ SCH ×2 (10:00→14:19)
[2021-07-06 11:00] VITALS: BP 149/95
[2021-07-06 14:00] VITALS: BP 144/92
[2021-07-06] MEDS: HYDROcodone/acetaminophen 5mg/325mg tablet PO PRN (14:44)
[2021-07-06 15:17] LABS: ABG BASE EXCESS 7.3 mmol/L (-2.0-2.0); ABG HCO3 30.7 mmol/L (22.0-26.0); ABG OXYGEN SATURATION 98.9 % (94-97); ABG PCO2 (T) 38.7 mmHg (35.0-48.0); ABG PO2 (T) 164.8 mmHg (75.0-100.0); ALLEN'S TEST POSITIVE; FCOHb 0.3 % (0.0-3.9); FMetHb 0.2 % (0.0-1.5); FO2Hb 98.4 % (94-97); TOTAL HEMOGLOBIN 16.8 G/dl (14.0-18.0)
[2021-07-06 18:00] VITALS: BP 112/69
--- NOTE | 2021-07-06 18:00 | NUR ---
Patient in room COVID 08. I have received report from soto olea and had the opportunity to ask questions and assume patient care.
--- NOTE | 2021-07-06 18:57 | NUR ---
Problems reprioritized. Patient report given, questions answered & plan of care reviewed with lefty wiley.
[2021-07-06] MEDS: temazepam 15mg capsule PO PRN (21:33)
[2021-07-06] MEDS: guaiFENesin/DM 10ml UD oral syrup PO PRN (21:33)
[2021-07-06] MEDS: ROPINIRole 0.25mg tablet PO SCH (21:33)
[2021-07-06] MEDS: insulin glargine (Lantus) pen - multi-dose SQ SCH (21:55)
[2021-07-06 22:00] VITALS: BP 109/62
[2021-07-07] MEDS: methylPREDNISolone sod succ 125mg/2ml vial IV SCH ×3 (00:14→16:56)
[2021-07-07 06:00] VITALS: BP 126/83
--- NOTE | 2021-07-07 06:44 | NUR ---
patient continuously removes mask desaturates to 70s. patient instructed that he is jeopardizing his health removing his mask. patient encouraged to do deep breathing exercises, patient is not compliant to care, requires frequent coaching and education about oxygenation perfusion and LOC in relation to oxygen. patient gets out of bed by his self, defecates on the floor and is found sitting on bedside commode. Tabs alarm turned on . bipap replaced, patient tolerates bipap better and saturates better than on hi amaury and rebreather although he prefers that over the other. however he keeps removing the nasal cannula. will cont. to monitor,.
--- NOTE | 2021-07-07 06:45 | NUR ---
Patient in room COVID 08. I have received report from CR GARCIA and had the opportunity to ask questions and assume patient care.
[2021-07-07] MEDS: guaiFENesin/DM 10ml UD oral syrup PO PRN ×2 (07:55→15:42)
[2021-07-07] MEDS: furosemide 20 MG/2 ML vial IV SCH (07:55)
[2021-07-07] MEDS: gabapentin 400mg capsule PO SCH ×2 (07:56→19:57)
[2021-07-07] MEDS: allopurinol 300 MG tablet PO SCH (07:56)
[2021-07-07] MEDS: enoxaparin 30mg/0.3ml syringe SQ SCH ×2 (07:56→19:58)
[2021-07-07] MEDS: tamsulosin 0.4mg capsule PO SCH (07:56)
[2021-07-07] MEDS: famotidine 20mg tablet PO SCH (07:57)
[2021-07-07] MEDS: HYDROcodone/acetaminophen 5mg/325mg tablet PO PRN ×2 (07:57→15:42)
[2021-07-07] MEDS: lisinopril 20mg tablet PO SCH (07:58)
[2021-07-07] MEDS: levoTHYROXINE 25mcg tablet PO SCH (07:58)
[2021-07-07] MEDS: pravastatin 40mg tablet PO SCH (07:58)
[2021-07-07] MEDS: docusate sodium 100mg/10ml UD cup PO SCH ×2 (08:00→19:57)
[2021-07-07 08:05] LABS: D-DIMER 0.95 MG/L FEU (0-0.50)
[2021-07-07] MEDS: lactose-reduced food (Ensure Enlive) - 237ml bottle PO SCH ×3 (08:06→18:00)
[2021-07-07] MEDS: insulin Lispro (HumaLOG) vial - multi-dose SQ SCH ×3 (09:56→20:29)
[2021-07-07 11:00] VITALS: BP 118/78
--- NOTE | 2021-07-07 11:01 | NUR ---
Reassessment: Pt w/ selective meal intake, refuses most meals on CCHO/Heart healthy diet though does have about 100% of a few meals. Pt consumed 2x ONS 07/05 though refused all 07/06. Current PO intake not meeting needs. Discussed w/ RN to d/c Heart Healthy diet if MD agreeable and keep CCHO. No N/V/D noted, LBM 07/04. Will continue to monitor. Recommendations: 1) Continue CHO controlled diet as tolerated, d/c Heart Healthy diet 2) Ensure Enlive TID, encourage intake 3) Routine bowel care 4) Weekly scaled weights Addendum: 07/07/21 at [address] Amended: Links added.
[2021-07-07 14:00] VITALS: BP 134/69
--- NOTE | 2021-07-07 18:00 | NUR ---
Patient in room COVID 05. I have received report from soto olea and had the opportunity to ask questions and assume patient care.
--- NOTE | 2021-07-07 18:39 | NUR ---
Problems reprioritized. Patient report given, questions answered & plan of care reviewed with .lefty wiley
[2021-07-07] MEDS: insulin glargine (Lantus) pen - multi-dose SQ SCH (20:28)
[2021-07-07 22:00] VITALS: BP 118/71
[2021-07-07] MEDS: temazepam 15mg capsule PO PRN (22:29)
[2021-07-07] MEDS: ROPINIRole 0.25mg tablet PO SCH (22:31)
[2021-07-08] MEDS: methylPREDNISolone sod succ 125mg/2ml vial IV SCH ×4 (00:58→16:37)
--- NOTE | 2021-07-08 01:40 | NUR ---
patient practicing deep breathing exercises throughout the day with coaching. with just the rebreather on patient is saturating between 90-94% as opposed to prev days where patient desats rapidly. removed high flow nasal cannula and patient maintained at 94% with rebreather. however at night time while asleep patient became restless and kept removing his oxygen. patient was sleep not aware. blood sugar 209mg/dl vitals stable. patient changed in bed, RT comes to bedside. patient placed on bipap for more secure measures to oxygenate (patient unable to remove bipap so easily however now he is satting between 89-92%) RT notified via page
[2021-07-08 02:40] VITALS: BP 130/59
[2021-07-08 06:00] VITALS: BP 118/76
[2021-07-08] MEDS: tamsulosin 0.4mg capsule PO SCH ×2 (08:00→10:00)
[2021-07-08] MEDS: allopurinol 300 MG tablet PO SCH ×2 (08:00→10:01)
[2021-07-08] MEDS: docusate sodium 100mg/10ml UD cup PO SCH ×3 (08:00→20:00)
[2021-07-08] MEDS: gabapentin 400mg capsule PO SCH ×3 (08:00→20:00)
[2021-07-08] MEDS: lisinopril 20mg tablet PO SCH ×2 (08:00→10:01)
[2021-07-08] MEDS: levoTHYROXINE 25mcg tablet PO SCH ×2 (08:00→10:01)
[2021-07-08] MEDS: pravastatin 40mg tablet PO SCH (08:00)
[2021-07-08] MEDS: lactose-reduced food (Ensure Enlive) - 237ml bottle PO SCH ×3 (08:00→18:00)
[2021-07-08] MEDS: famotidine 20mg tablet PO SCH ×2 (08:00→10:00)
[2021-07-08 08:31] LABS: BASOPHILS % (AUTO) 0 % (0-1); EOSINOPHILS % (AUTO) 0 % (0-6); HEMATOCRIT 48.2 % (42.0-52.0); HEMOGLOBIN 15.8 g/dl (14.0-17.9); LYMPHOCYTES # (AUTO) 0.4 X10'3 (1.1-4.8); LYMPHOCYTES % (AUTO) 1.9 % (21-51); MEAN CORPUSCULAR HEMOGLOBIN 29.7 PG (27.0-31.0); MEAN CORPUSCULAR HGB CONC 32.7 g/dL (33.0-36.5); MEAN CORPUSCULAR VOLUME 90.6 FL (78-98); MONOCYTES # (AUTO) 0.5 X10'3 (0-0.9); MONOCYTES % (AUTO) 2.6 % (2-12); NEUTROPHILS # (AUTO) 17.7 X10'3 (1.8-7.7); NEUTROPHILS % (AUTO) 95.5 % (42-75); PLATELET COUNT 321 X10'3 (140-440); RED BLOOD COUNT 5.32 X10'6 (4.70-6.10); RED CELL DISTRIBUTION WIDTH 14.6 % (11.5-14.5); WHITE BLOOD COUNT 18.5 X10'3 (4.5-11.0)
[2021-07-08 08:43] LABS: D-DIMER 0.98 MG/L FEU (0-0.50)
[2021-07-08 08:54] LABS: ALBUMIN 2.4 G/DL (3.4-5.0); ANION GAP 6 (8-16); BLOOD UREA NITROGEN 42 MG/DL (7-18); BUN/CREATININE RATIO 37.5 (5.4-32.0); C-REACTIVE PROTEIN 3.11 MG/DL (0.0-0.5); CALCIUM 8.8 MG/DL (8.5-10.1); CHLORIDE 105 MMOL/L (99-107); CREATININE 1.12 MG/DL (0.60-1.10); GLUCOSE 158 MG/DL (70-104); POTASSIUM 4.1 MMOL/L (3.5-5.1); SODIUM 149 MMOL/L (135-145); TOTAL CARBON DIOXIDE 38.2 MMOL/L (24-32); eGFR 63 ML/MIN
[2021-07-08] MEDS: furosemide 20 MG/2 ML vial IV SCH (09:59)
[2021-07-08] MEDS: enoxaparin 30mg/0.3ml syringe SQ SCH ×2 (09:59→21:10)
[2021-07-08 11:00] VITALS: BP 155/90
[2021-07-08 15:00] VITALS: BP 112/50
[2021-07-08] MEDS: vancomycin/NS 1 GM ADD-VANTAGE 250 ML IV SCH (20:12)
[2021-07-08] MEDS: ROPINIRole 0.25mg tablet PO SCH (21:00)
[2021-07-08] MEDS: insulin glargine (Lantus) pen - multi-dose SQ SCH (21:07)
[2021-07-08] MEDS: insulin Lispro (HumaLOG) vial - multi-dose SQ SCH (21:10)
[2021-07-08] MEDS: cefepime 2g/NS 100ml ADVANTAGE 100 ML IV SCH (21:11)
[2021-07-08 21:56] VITALS: BP 133/81
[2021-07-09] MEDS: methylPREDNISolone sod succ 125mg/2ml vial IV SCH ×4 (01:10→23:48)
[2021-07-09] MEDS: lactose-reduced food (Ensure Enlive) - 237ml bottle PO SCH ×3 (01:10→18:00)
[2021-07-09 02:00] VITALS: BP 129/88
--- NOTE | 2021-07-09 04:48 | NUR ---
PATIENT PLACED IN RESTRAINTS 07/[address] STARR ORDERED RESTRAINTS AND SITTER FOR PATIENT BUT THE ORDER WAS ENTERED ON THE WRONG PATIENT. I CAUGHT THIS ERROR TONIGHT. SPOKE WITH DR. STARR WHO RENEWED BOTH SITTER AND RESTRAINT ORDERS FOR TONIGHT.
[2021-07-09 07:00] VITALS: BP 157/100
[2021-07-09] MEDS: famotidine 20mg tablet PO SCH (08:00)
[2021-07-09] MEDS: gabapentin 400mg capsule PO SCH ×2 (08:00→19:21)
[2021-07-09] MEDS: docusate sodium 100mg/10ml UD cup PO SCH ×2 (08:00→19:21)
[2021-07-09] MEDS: tamsulosin 0.4mg capsule PO SCH (08:00)
[2021-07-09] MEDS: pravastatin 40mg tablet PO SCH (08:00)
[2021-07-09] MEDS: lisinopril 20mg tablet PO SCH (08:00)
[2021-07-09] MEDS: allopurinol 300 MG tablet PO SCH (08:00)
[2021-07-09 08:09] LABS: D-DIMER 1.09 MG/L FEU (0-0.50)
[2021-07-09] MEDS: furosemide 20 MG/2 ML vial IV SCH (08:37)
[2021-07-09] MEDS: insulin Lispro (HumaLOG) vial - multi-dose SQ SCH ×3 (08:37→22:00)
[2021-07-09] MEDS: enoxaparin 30mg/0.3ml syringe SQ SCH ×2 (08:39→19:19)
[2021-07-09] MEDS: cefepime 2g/NS 100ml ADVANTAGE 100 ML IV SCH ×2 (08:42→19:21)
[2021-07-09] MEDS: vancomycin/NS 1 GM ADD-VANTAGE 250 ML IV SCH ×2 (10:39→19:21)
[2021-07-09] MEDS: levoTHYROXINE sod inj. 100mcg/5 ml vial IV SCH (10:39)
[2021-07-09 11:00] VITALS: BP 136/78
[2021-07-09 15:00] VITALS: BP 159/99
[2021-07-09 18:00] VITALS: BP 155/74
--- NOTE | 2021-07-09 18:00 | NUR ---
Patient in room COVID 05. I have received report from CR fisher and had the opportunity to ask questions and assume patient care.
[2021-07-09] MEDS: lactobacillus rhamnosus 10,000 MMU CELLS/CAPSULE PO SCH (19:21)
[2021-07-09] MEDS: guaiFENesin/DM 10ml UD oral syrup PO PRN ×2 (19:21→23:48)
[2021-07-09] MEDS: ROPINIRole 0.25mg tablet PO SCH (19:22)
--- NOTE | 2021-07-09 20:17 | NUR ---
patient did not eat dinner, requires assistance, oxygenated patient and fed small bites of turkey sandwchi cup of apple sauce, patient drinks large quantity of water and few sips of vanilla ensure. will cont. to feed patient throughout the shift to meet nutrition goals. patient saturates at 93-95% on NRB at 15L. Will cont. to monitor. Addendum: 07/09/21 at 2019 by Analilia Cortez RN Amended: Links added.
--- NOTE | 2021-07-09 20:31 | NUR ---
patient given plenty fluids (ensure and water) apple sauce and small bites of turkey sandwhich. mouth was very dry. patient tolerates well. cough suppressant given to assist with comfort rest and abuility to eat without coughing whcih increases risk for aspiration. patient tolerates food well states that he was hungry. Will cont. to feed patient small bites as tolerated throughout the night. POC overviewed with patient, patient encroauged to use bed banks and urinal to ask for assistance when he needs to use the rest room to maintain independence versus wetting the bed. patient verbalizes udnerstanding. bed changed patient cleaned up. patient does not know the year or month unable to recall. however knows his name and where he is at. Patient taken off of bipap to allow eating saturates at 95% on 15L non rebreather. RT comes in to assess patient, agrees that patient is satting well on nonrebreather alone, plan is to put patient back on bipap at night. nothing further to report.
[2021-07-09 22:00] VITALS: BP 179/109
[2021-07-09] MEDS: insulin glargine (Lantus) pen - multi-dose SQ SCH (22:01)
--- NOTE | 2021-07-09 23:30 | NUR ---
oral care perfomed on patient teeth brushed, mouth swabbed, encrustations removed from tongue and lips. mouth rinsed with water. patient given more ensure, completes 100%, tiny bits of sandwhich given.
[2021-07-10 06:59] VITALS: BP 159/109
[2021-07-10] MEDS ORDERED: VANCOMYCIN LEVEL IV ONE (07:30)
[2021-07-10] MEDS: methylPREDNISolone sod succ 125mg/2ml vial IV SCH ×2 (08:36→15:26)
[2021-07-10] MEDS: docusate sodium 100mg/10ml UD cup PO SCH ×2 (08:36→20:37)
[2021-07-10] MEDS: furosemide 20 MG/2 ML vial IV SCH (08:36)
[2021-07-10] MEDS: levoTHYROXINE sod inj. 100mcg/5 ml vial IV SCH (08:37)
[2021-07-10] MEDS: vancomycin/NS 1 GM ADD-VANTAGE 250 ML IV SCH (08:37)
[2021-07-10] MEDS: lactobacillus rhamnosus 10,000 MMU CELLS/CAPSULE PO SCH ×2 (08:38→20:36)
[2021-07-10] MEDS: lisinopril 20mg tablet PO SCH (08:38)
[2021-07-10] MEDS: cefepime 2g/NS 100ml ADVANTAGE 100 ML IV SCH ×2 (08:38→20:22)
[2021-07-10] MEDS: guaiFENesin/DM 10ml UD oral syrup PO PRN (08:38)
[2021-07-10] MEDS: gabapentin 400mg capsule PO SCH ×2 (08:39→20:36)
[2021-07-10] MEDS: famotidine 20mg tablet PO SCH (08:39)
[2021-07-10] MEDS: pravastatin 40mg tablet PO SCH (08:39)
[2021-07-10] MEDS: lactose-reduced food (Ensure Enlive) - 237ml bottle PO SCH ×3 (08:39→17:55)
[2021-07-10] MEDS: allopurinol 300 MG tablet PO SCH (08:39)
[2021-07-10] MEDS: tamsulosin 0.4mg capsule PO SCH (08:39)
[2021-07-10] MEDS: enoxaparin 30mg/0.3ml syringe SQ SCH ×2 (08:40→20:47)
[2021-07-10] MEDS: insulin Lispro (HumaLOG) vial - multi-dose SQ SCH ×4 (08:43→22:28)
[2021-07-10 09:01] LABS: BASOPHILS # (AUTO) 0.1 X10'3 (0-0.2); BASOPHILS % (AUTO) 0.4 % (0-1); EOSINOPHILS % (AUTO) 0 % (0-6); HEMATOCRIT 46.3 % (42.0-52.0); HEMOGLOBIN 14.7 g/dl (14.0-17.9); LYMPHOCYTES # (AUTO) 0.5 X10'3 (1.1-4.8); MEAN CORPUSCULAR HEMOGLOBIN 29.1 PG (27.0-31.0); MEAN CORPUSCULAR HGB CONC 31.7 g/dL (33.0-36.5); MEAN CORPUSCULAR VOLUME 91.7 FL (78-98); MEAN PLATELET VOLUME 9.1 FL (7.4-10.4); MONOCYTES # (AUTO) 0.8 X10'3 (0-0.9); MONOCYTES % (AUTO) 4.8 % (2-12); NEUTROPHILS # (AUTO) 14.6 X10'3 (1.8-7.7); NEUTROPHILS % (AUTO) 91.8 % (42-75); PLATELET COUNT 264 X10'3 (140-440); RED BLOOD COUNT 5.05 X10'6 (4.70-6.10); RED CELL DISTRIBUTION WIDTH 15.2 % (11.5-14.5); WHITE BLOOD COUNT 15.9 X10'3 (4.5-11.0)
[2021-07-10 09:19] LABS: ALANINE AMINOTRANSFERASE 41 U/L (12-78); ALBUMIN 1.9 G/DL (3.4-5.0); ALBUMIN/GLOBULIN RATIO 0.5 (1.1-1.5); ALKALINE PHOSPHATASE 83 IU/L (46-116); ANION GAP 4 (8-16); ASPARTATE AMINO TRANSFERASE 23 U/L (10-37); BILIRUBIN,TOTAL 0.7 MG/DL (0.1-1.0); BLOOD UREA NITROGEN 43 MG/DL (7-18); BUN/CREATININE RATIO 32.8 (5.4-32.0); C-REACTIVE PROTEIN 4.03 MG/DL (0.0-0.5); CALCIUM 8.3 MG/DL (8.5-10.1); CHLORIDE 114 MMOL/L (99-107); CREATININE 1.31 MG/DL (0.60-1.10); GLUCOSE 294 MG/DL (70-104); TOTAL CARBON DIOXIDE 37.5 MMOL/L (24-32); VANCOMYCIN,TROUGH 12.8 UG/ML (6.0-14.0); eGFR 53 ML/MIN
[2021-07-10 09:25] LABS: D-DIMER 1.07 MG/L FEU (0-0.50)
[2021-07-10 09:35] LABS: SODIUM 155 MMOL/L (135-145)
[2021-07-10 10:01] LABS: LARGE PLATELETS FEW; PLATELET ESTIMATE NORMAL
[2021-07-10 12:25] VITALS: BP 116/73
--- NOTE | 2021-07-10 14:15 | NUR ---
Reassessment: Pt now just on a CHO controlled diet though eating poorly with mostly 0% PO intake since last RD assessment 07/07 despite receiving minimal to moderate assistance with meals per EMR. Pt with good acceptance of ONS, documented with mostly 75-100% PO intake of Ensure Enlive TID. Of note Ensure was held 07/09 d/t pt unable to swallow per EMR. Pt would benefit from BSS with ST to determine need for texture modification. Pt with elevated serum Na of 155 MMOL/L, started on D5 at 50 mL/hr today (204 kcal). LBM 07/08, receiving routine bowel care. Will continue to follow closely and make recommendations as appropriate. Recommendations: 1) Continue CHO controlled diet 2) Ensure Enlive TID 3) Encourage PO intake and assist with meals as pt A/O x 2 and confused 4) BSS with ST in view of patient unable to swallow 07/09 per EMR 5) Routine bowel care 6) Weekly scaled weights Addendum: 07/10/21 at [address] Amended: Links added.
[2021-07-10 15:07] VITALS: BP 99/71
[2021-07-10] MEDS: dextrose 5%-water 1,000 ML IV SCH (15:20)
[2021-07-10 18:00] VITALS: BP 119/70
[2021-07-10] MEDS: ROPINIRole 0.25mg tablet PO SCH (20:56)
[2021-07-10 22:00] VITALS: BP 138/85
[2021-07-10] MEDS: insulin glargine (Lantus) pen - multi-dose SQ SCH (22:23)
[2021-07-10] MEDS: VANCOmycin 1250MG/NS 250ml Bag 250 ML IV SCH (22:59)
[2021-07-11] MEDS: methylPREDNISolone sod succ 125mg/2ml vial IV SCH ×3 (00:15→16:11)
[2021-07-11 02:00] VITALS: BP 140/65
[2021-07-11 04:08] VITALS: BP 152/88
[2021-07-11 07:00] VITALS: BP 105/71
[2021-07-11] MEDS: lactobacillus rhamnosus 10,000 MMU CELLS/CAPSULE PO SCH ×2 (08:00→18:59)
[2021-07-11] MEDS: furosemide 20 MG/2 ML vial IV SCH (08:49)
[2021-07-11] MEDS: cefepime 2g/NS 100ml ADVANTAGE 100 ML IV SCH ×2 (08:50→19:00)
[2021-07-11] MEDS: levoTHYROXINE sod inj. 100mcg/5 ml vial IV SCH (08:50)
[2021-07-11] MEDS: lactose-reduced food (Ensure Enlive) - 237ml bottle PO SCH ×3 (08:51→18:00)
[2021-07-11] MEDS: famotidine 20mg tablet PO SCH (08:51)
[2021-07-11] MEDS: docusate sodium 100mg/10ml UD cup PO SCH ×2 (08:51→19:00)
[2021-07-11] MEDS: tamsulosin 0.4mg capsule PO SCH (08:51)
[2021-07-11] MEDS: gabapentin 400mg capsule PO SCH ×2 (08:51→18:58)
[2021-07-11] MEDS: lisinopril 20mg tablet PO SCH (08:52)
[2021-07-11] MEDS: allopurinol 300 MG tablet PO SCH (08:52)
[2021-07-11] MEDS: pravastatin 40mg tablet PO SCH (08:52)
[2021-07-11] MEDS: enoxaparin 30mg/0.3ml syringe SQ SCH ×2 (08:53→18:59)
[2021-07-11 08:57] LABS: BASOPHILS % (AUTO) 0.3 % (0-1); EOSINOPHILS % (AUTO) 0 % (0-6); HEMATOCRIT 49.4 % (42.0-52.0); HEMOGLOBIN 15.4 g/dl (14.0-17.9); LYMPHOCYTES # (AUTO) 0.7 X10'3 (1.1-4.8); LYMPHOCYTES % (AUTO) 5.1 % (21-51); MEAN CORPUSCULAR HGB CONC 31.2 g/dL (33.0-36.5); MEAN CORPUSCULAR VOLUME 92.7 FL (78-98); MEAN PLATELET VOLUME 9.4 FL (7.4-10.4); MONOCYTES # (AUTO) 0.9 X10'3 (0-0.9); MONOCYTES % (AUTO) 6.6 % (2-12); NEUTROPHILS # (AUTO) 12.2 X10'3 (1.8-7.7); PLATELET COUNT 280 X10'3 (140-440); RED BLOOD COUNT 5.33 X10'6 (4.70-6.10); RED CELL DISTRIBUTION WIDTH 15.4 % (11.5-14.5); WHITE BLOOD COUNT 13.8 X10'3 (4.5-11.0)
[2021-07-11] MEDS: insulin Lispro (HumaLOG) vial - multi-dose SQ SCH ×3 (09:03→18:58)
[2021-07-11 09:15] LABS: D-DIMER 0.93 MG/L FEU (0-0.50)
[2021-07-11] MEDS: dextrose 5%-water 1,000 ML IV SCH (09:20)
[2021-07-11 09:32] LABS: ALANINE AMINOTRANSFERASE 45 U/L (12-78); ALBUMIN/GLOBULIN RATIO 0.5 (1.1-1.5); ALKALINE PHOSPHATASE 63 IU/L (46-116); ANION GAP 8 (8-16); ASPARTATE AMINO TRANSFERASE 24 U/L (10-37); BILIRUBIN,TOTAL 0.7 MG/DL (0.1-1.0); BLOOD UREA NITROGEN 43 MG/DL (7-18); BUN/CREATININE RATIO 38.4 (5.4-32.0); C-REACTIVE PROTEIN 2.39 MG/DL (0.0-0.5); CALCIUM 8.6 MG/DL (8.5-10.1); CHLORIDE 110 MMOL/L (99-107); CREATININE 1.12 MG/DL (0.60-1.10); GLUCOSE 213 MG/DL (70-104); POTASSIUM 4.2 MMOL/L (3.5-5.1); SODIUM 152 MMOL/L (135-145); TOTAL PROTEIN 6.3 G/DL (6.4-8.2); eGFR 63 ML/MIN
[2021-07-11 11:00] VITALS: BP 136/66
--- NOTE | 2021-07-11 11:11 | NUR ---
Page Sent promotional table spacer PAGER ID: [phone] MESSAGE: Covcasandra Morrow . Patient had 30 beat run of vtach. [phone]
[2021-07-11] MEDS ORDERED: amiodarone 150mg/dext, iso-os 100 ML IV ONE (12:35)
[2021-07-11] MEDS: amiodarone 200mg tablet PO SCH (12:53)
[2021-07-11] MEDS: VANCOmycin 1250MG/NS 250ml Bag 250 ML IV SCH ×2 (12:53→22:48)
[2021-07-11 15:00] VITALS: BP 120/74
--- NOTE | 2021-07-11 18:13 | NUR ---
Problems reprioritized. Patient report given, questions answered & plan of care reviewed with Dell HANKINS.
[2021-07-11] MEDS: insulin glargine (Lantus) pen - multi-dose SQ SCH (22:46)
[2021-07-11] MEDS: ROPINIRole 0.25mg tablet PO SCH (22:47)
[2021-07-12] MEDS: methylPREDNISolone sod succ 125mg/2ml vial IV SCH ×4 (00:21→23:33)
--- NOTE | 2021-07-12 00:36 | NUR ---
I have received report from CR Estrada and had the opportunity to ask questions and assume patient care.
[2021-07-12 02:00] VITALS: BP 110/63
[2021-07-12] MEDS: normal saline 1000ml 1,000 ML IV SCH ×2 (05:30→21:20)
--- NOTE | 2021-07-12 06:32 | NUR ---
Problems reprioritized. Patient report given, questions answered & plan of care reviewed with CR Smith.
[2021-07-12 07:00] VITALS: BP 121/75
--- NOTE | 2021-07-12 07:14 | NUR ---
Patient in room COVID 05B. I have received report from CR MUÑOZ and had the opportunity to ask questions and assume patient care.
[2021-07-12] MEDS ORDERED: VANCOMYCIN LEVEL IV ONE ×2 (07:30→22:30)
[2021-07-12] MEDS: lactose-reduced food (Ensure Enlive) - 237ml bottle PO SCH ×3 (08:00→18:00)
[2021-07-12] MEDS: docusate sodium 100mg/10ml UD cup PO SCH ×2 (08:00→20:07)
[2021-07-12 08:23] LABS: BASOPHILS % (AUTO) 0.1 % (0-1); EOSINOPHILS % (AUTO) 0 % (0-6); HEMOGLOBIN 14.8 g/dl (14.0-17.9); LYMPHOCYTES # (AUTO) 0.7 X10'3 (1.1-4.8); LYMPHOCYTES % (AUTO) 5.3 % (21-51); MEAN CORPUSCULAR HEMOGLOBIN 29.3 PG (27.0-31.0); MEAN CORPUSCULAR HGB CONC 32.2 g/dL (33.0-36.5); MEAN CORPUSCULAR VOLUME 91.1 FL (78-98); MEAN PLATELET VOLUME 9.4 FL (7.4-10.4); MONOCYTES # (AUTO) 0.7 X10'3 (0-0.9); MONOCYTES % (AUTO) 5.2 % (2-12); NEUTROPHILS # (AUTO) 12.6 X10'3 (1.8-7.7); NEUTROPHILS % (AUTO) 89.4 % (42-75); PLATELET COUNT 225 X10'3 (140-440); RED BLOOD COUNT 5.05 X10'6 (4.70-6.10); RED CELL DISTRIBUTION WIDTH 14.9 % (11.5-14.5); WHITE BLOOD COUNT 14.1 X10'3 (4.5-11.0)
[2021-07-12 08:52] LABS: D-DIMER 0.79 MG/L FEU (0-0.50)
[2021-07-12 09:06] LABS: ALANINE AMINOTRANSFERASE 47 U/L (12-78); ALBUMIN 1.9 G/DL (3.4-5.0); ALBUMIN/GLOBULIN RATIO 0.5 (1.1-1.5); ALKALINE PHOSPHATASE 57 IU/L (46-116); ANION GAP 2 (8-16); ASPARTATE AMINO TRANSFERASE 27 U/L (10-37); BILIRUBIN,TOTAL 0.7 MG/DL (0.1-1.0); BLOOD UREA NITROGEN 44 MG/DL (7-18); BUN/CREATININE RATIO 44.4 (5.4-32.0); C-REACTIVE PROTEIN 1.08 MG/DL (0.0-0.5); CHLORIDE 108 MMOL/L (99-107); CREATININE 0.99 MG/DL (0.60-1.10); SODIUM 143 MMOL/L (135-145); TOTAL CARBON DIOXIDE 33.1 MMOL/L (24-32); TOTAL PROTEIN 5.8 G/DL (6.4-8.2); eGFR 73 ML/MIN
[2021-07-12 09:10] LABS: CALCIUM 8.3 MG/DL (8.5-10.1); GLUCOSE 197 MG/DL (70-104); POTASSIUM 4.2 MMOL/L (3.5-5.1)
[2021-07-12] MEDS: levoTHYROXINE sod inj. 100mcg/5 ml vial IV SCH (09:42)
[2021-07-12] MEDS: enoxaparin 30mg/0.3ml syringe SQ SCH ×2 (09:43→20:07)
[2021-07-12] MEDS: cefepime 2g/NS 100ml ADVANTAGE 100 ML IV SCH ×2 (09:43→20:07)
[2021-07-12] MEDS: lactobacillus rhamnosus 10,000 MMU CELLS/CAPSULE PO SCH ×2 (09:44→20:07)
[2021-07-12] MEDS: tamsulosin 0.4mg capsule PO SCH (09:44)
[2021-07-12] MEDS: allopurinol 300 MG tablet PO SCH (09:44)
[2021-07-12] MEDS: pravastatin 40mg tablet PO SCH (09:44)
[2021-07-12] MEDS: famotidine 20mg tablet PO SCH (09:45)
[2021-07-12] MEDS: gabapentin 400mg capsule PO SCH ×2 (09:45→20:07)
[2021-07-12] MEDS: insulin Lispro (HumaLOG) vial - multi-dose SQ SCH ×3 (09:56→18:49)
[2021-07-12] MEDS: amiodarone 200mg tablet PO SCH (09:59)
[2021-07-12] MEDS: lisinopril 20mg tablet PO SCH (09:59)
[2021-07-12 10:14] LABS: VANCOMYCIN,TROUGH 22.4 UG/ML (6.0-14.0)
[2021-07-12] MEDS: VANCOmycin 1250MG/NS 250ml Bag 250 ML IV SCH ×2 (10:50→23:33)
[2021-07-12 11:00] VITALS: BP 118/91
[2021-07-12] MEDS ORDERED: ondansetron 4mg rapidly disintigrating tab PO PRN (15:50)
[2021-07-12 16:00] VITALS: BP 122/74
[2021-07-12 18:00] VITALS: BP 120/71
--- NOTE | 2021-07-12 18:24 | NUR ---
Patient in room COVID 05. I have received report from Sarah HANKINS and had the opportunity to ask questions and assume patient care.
[2021-07-12] MEDS: ROPINIRole 0.25mg tablet PO SCH (20:08)
[2021-07-12 22:00] VITALS: BP 128/90
[2021-07-12] MEDS: insulin glargine (Lantus) pen - multi-dose SQ SCH (22:10)
[2021-07-13 03:00] VITALS: BP 134/74
[2021-07-13] MEDS: normal saline 1000ml 1,000 ML IV SCH (03:39)
--- NOTE | 2021-07-13 06:18 | NUR ---
Problems reprioritized. Patient report given, questions answered & plan of care reviewed with Sarah HANKINS.
--- NOTE | 2021-07-13 06:18 | NUR ---
Patient in room COVID 05B. I have received report from CR SAMANO and had the opportunity to ask questions and assume patient care.
[2021-07-13 07:00] VITALS: BP 117/73
[2021-07-13] MEDS: lactose-reduced food (Ensure Enlive) - 237ml bottle PO SCH ×3 (08:00→18:02)
[2021-07-13] MEDS: pravastatin 40mg tablet PO SCH (08:00)
[2021-07-13] MEDS: gabapentin 400mg capsule PO SCH ×2 (08:00→20:16)
[2021-07-13] MEDS: famotidine 20mg tablet PO SCH (08:00)
[2021-07-13 08:17] LABS: BASOPHILS % (AUTO) 0.1 % (0-1); EOSINOPHILS % (AUTO) 0 % (0-6); HEMOGLOBIN 14.3 g/dl (14.0-17.9); LYMPHOCYTES # (AUTO) 0.5 X10'3 (1.1-4.8); LYMPHOCYTES % (AUTO) 3.9 % (21-51); MEAN CORPUSCULAR HEMOGLOBIN 29.7 PG (27.0-31.0); MEAN CORPUSCULAR HGB CONC 31.7 g/dL (33.0-36.5); MEAN CORPUSCULAR VOLUME 93.6 FL (78-98); MEAN PLATELET VOLUME 9.3 FL (7.4-10.4); MONOCYTES # (AUTO) 0.6 X10'3 (0-0.9); MONOCYTES % (AUTO) 4.9 % (2-12); NEUTROPHILS # (AUTO) 11.7 X10'3 (1.8-7.7); NEUTROPHILS % (AUTO) 91.1 % (42-75); PLATELET COUNT 191 X10'3 (140-440); RED BLOOD COUNT 4.81 X10'6 (4.70-6.10); RED CELL DISTRIBUTION WIDTH 14.9 % (11.5-14.5); WHITE BLOOD COUNT 12.8 X10'3 (4.5-11.0)
[2021-07-13 08:24] LABS: D-DIMER 1.04 MG/L FEU (0-0.50)
[2021-07-13 08:42] LABS: ALANINE AMINOTRANSFERASE 55 U/L (12-78); ALBUMIN 1.9 G/DL (3.4-5.0); ALBUMIN/GLOBULIN RATIO 0.5 (1.1-1.5); ALKALINE PHOSPHATASE 62 IU/L (46-116); ANION GAP 3 (8-16); ASPARTATE AMINO TRANSFERASE 22 U/L (10-37); BILIRUBIN,TOTAL 0.7 MG/DL (0.1-1.0); BLOOD UREA NITROGEN 40 MG/DL (7-18); C-REACTIVE PROTEIN 0.37 MG/DL (0.0-0.5); CALCIUM 8.4 MG/DL (8.5-10.1); CHLORIDE 113 MMOL/L (99-107); GLUCOSE 150 MG/DL (70-104); POTASSIUM 4.6 MMOL/L (3.5-5.1); SODIUM 149 MMOL/L (135-145); TOTAL PROTEIN 5.4 G/DL (6.4-8.2); eGFR 72 ML/MIN
--- NOTE | 2021-07-13 09:04 | NUR ---
Reassessment: Pt continues w/ poor meal intake, avg 22% x 9 meals on CCHO diet though consuming mostly 100% of Ensure Enlive TID which meets 75% of est energy needs and 84% of est protein needs. Pt seen by ST 07/11 and recommended MM5 and that pt fatigues while eating per note. Pt remains BiPAP dependent per EMR. Serum Na downtrending, currently 149mMol/L, receiving NS at 50ml/hr. LBM 07/12. Will continue to monitor. Recommendations: 1) Continue CCHO/MM5 diet per ST recs 2) Ensure Enlive TID 3) Encourage PO intake and assist with meals as pt A/O x 2 and confused 4) Routine bowel care 5) Weekly scaled weights Addendum: 07/13/21 at [address] Amended: Links added.
[2021-07-13] MEDS: cefepime 2g/NS 100ml ADVANTAGE 100 ML IV SCH ×2 (09:15→20:16)
[2021-07-13] MEDS: enoxaparin 30mg/0.3ml syringe SQ SCH ×2 (09:16→20:17)
[2021-07-13] MEDS: levoTHYROXINE sod inj. 100mcg/5 ml vial IV SCH (09:17)
[2021-07-13] MEDS: methylPREDNISolone sod succ 125mg/2ml vial IV SCH ×2 (09:18→17:31)
[2021-07-13] MEDS: docusate sodium 100mg/10ml UD cup PO SCH ×2 (09:18→20:16)
[2021-07-13] MEDS: lisinopril 20mg tablet PO SCH (09:18)
[2021-07-13] MEDS: allopurinol 300 MG tablet PO SCH (09:19)
[2021-07-13] MEDS: tamsulosin 0.4mg capsule PO SCH (09:20)
[2021-07-13] MEDS: amiodarone 200mg tablet PO SCH (09:20)
[2021-07-13] MEDS: lactobacillus rhamnosus 10,000 MMU CELLS/CAPSULE PO SCH ×2 (09:20→20:16)
[2021-07-13] MEDS: insulin Lispro (HumaLOG) vial - multi-dose SQ SCH ×3 (09:35→18:51)
[2021-07-13 11:00] VITALS: BP 125/64
[2021-07-13] MEDS: VANCOmycin 1250MG/NS 250ml Bag 250 ML IV SCH ×2 (12:36→23:00)
[2021-07-13 14:00] VITALS: BP 138/58
[2021-07-13 18:00] VITALS: BP 140/93
--- NOTE | 2021-07-13 18:25 | NUR ---
Patient in room COVID 05. I have received report from Sarah HANKINS and had the opportunity to ask questions and assume patient care.
--- NOTE | 2021-07-13 18:28 | NUR ---
Problems reprioritized. Patient report given, questions answered & plan of care reviewed with CR SAMANO.
[2021-07-13] MEDS: ROPINIRole 0.25mg tablet PO SCH (20:18)
[2021-07-13] MEDS ORDERED: AMIO200T67 PO (21:32)
[2021-07-13] MEDS ORDERED: LISI20TA28 PO (21:32)
[2021-07-13 22:00] VITALS: BP 122/63
[2021-07-13] MEDS: insulin glargine (Lantus) pen - multi-dose SQ SCH (22:03)
[2021-07-14] MEDS: methylPREDNISolone sod succ 125mg/2ml vial IV SCH ×3 (00:56→21:35)
[2021-07-14 02:00] VITALS: BP 125/81
[2021-07-14] MEDS: HYDROcodone/acetaminophen 7.5MG/325MG per 15ml UD CUP PO PRN ×2 (05:35→15:06)
--- NOTE | 2021-07-14 06:51 | NUR ---
Problems reprioritized. Patient report given, questions answered & plan of care reviewed with Maris HANKINS.
[2021-07-14] MEDS: cefepime 2g/NS 100ml ADVANTAGE 100 ML IV SCH ×2 (07:53→21:34)
[2021-07-14] MEDS: gabapentin 400mg capsule PO SCH ×2 (07:53→21:36)
[2021-07-14] MEDS: pravastatin 40mg tablet PO SCH (07:54)
[2021-07-14] MEDS: amiodarone 200mg tablet PO SCH (07:54)
[2021-07-14] MEDS: famotidine 20mg tablet PO SCH (07:54)
[2021-07-14] MEDS: lactobacillus rhamnosus 10,000 MMU CELLS/CAPSULE PO SCH ×2 (07:54→21:35)
[2021-07-14] MEDS: lisinopril 20mg tablet PO SCH (07:54)
[2021-07-14] MEDS: tamsulosin 0.4mg capsule PO SCH (07:54)
[2021-07-14] MEDS: lactose-reduced food (Ensure Enlive) - 237ml bottle PO SCH ×3 (07:55→17:55)
[2021-07-14] MEDS: docusate sodium 100mg/10ml UD cup PO SCH (07:55)
[2021-07-14] MEDS: allopurinol 300 MG tablet PO SCH (07:55)
[2021-07-14] MEDS: levoTHYROXINE sod inj. 100mcg/5 ml vial IV SCH (07:56)
[2021-07-14] MEDS: enoxaparin 30mg/0.3ml syringe SQ SCH ×2 (07:56→21:36)
[2021-07-14 08:00] VITALS: BP 141/97
[2021-07-14] MEDS: insulin Lispro (HumaLOG) vial - multi-dose SQ SCH ×3 (08:03→19:29)
--- NOTE | 2021-07-14 08:57 | NUR ---
DISCHARGE ORDERS NOTED. HAS STILL NOT ASSESSED PT. PT EVAL NOT COMPLETED. DO DME ORDERED. NO HOME 02 YET. PAGED PT TO COME EVAL PT. PT. NEEDS F/U WITH GAS BOOSTER ENGINEER???
[2021-07-14 09:12] LABS: BASOPHILS % (AUTO) 0.1 % (0-1); EOSINOPHILS % (AUTO) 0 % (0-6); HEMATOCRIT 48.6 % (42.0-52.0); HEMOGLOBIN 15.5 g/dl (14.0-17.9); LYMPHOCYTES # (AUTO) 0.5 X10'3 (1.1-4.8); LYMPHOCYTES % (AUTO) 3.2 % (21-51); MEAN CORPUSCULAR HEMOGLOBIN 29.3 PG (27.0-31.0); MEAN CORPUSCULAR HGB CONC 31.8 g/dL (33.0-36.5); MEAN CORPUSCULAR VOLUME 92.1 FL (78-98); MEAN PLATELET VOLUME 9.3 FL (7.4-10.4); MONOCYTES # (AUTO) 0.6 X10'3 (0-0.9); MONOCYTES % (AUTO) 3.6 % (2-12); NEUTROPHILS # (AUTO) 14.6 X10'3 (1.8-7.7); NEUTROPHILS % (AUTO) 93.1 % (42-75); PLATELET COUNT 211 X10'3 (140-440); RED BLOOD COUNT 5.28 X10'6 (4.70-6.10); RED CELL DISTRIBUTION WIDTH 15.1 % (11.5-14.5); WHITE BLOOD COUNT 15.7 X10'3 (4.5-11.0)
--- NOTE | 2021-07-14 09:18 | NUR ---
PAGED PT TWICE
[2021-07-14 09:38] LABS: ALANINE AMINOTRANSFERASE 71 U/L (12-78); ALBUMIN 2.1 G/DL (3.4-5.0); ALBUMIN/GLOBULIN RATIO 0.5 (1.1-1.5); ALKALINE PHOSPHATASE 70 IU/L (46-116); ASPARTATE AMINO TRANSFERASE 31 U/L (10-37); BILIRUBIN,TOTAL 0.7 MG/DL (0.1-1.0); CALCIUM 8.8 MG/DL (8.5-10.1); CHLORIDE 109 MMOL/L (99-107); CREATININE 1.05 MG/DL (0.60-1.10); GLUCOSE 223 MG/DL (70-104); TOTAL CARBON DIOXIDE 30.1 MMOL/L (24-32); eGFR 68 ML/MIN
[2021-07-14 09:39] LABS: ANION GAP 9 (8-16); BLOOD UREA NITROGEN 40 MG/DL (7-18); BUN/CREATININE RATIO 38.1 (5.4-32.0); SODIUM 148 MMOL/L (135-145)
--- NOTE | 2021-07-14 10:58 | NUR ---
O2 Sat at rest on room air:_86__% If below 89%: Recovery O2 Sat at rest on _4__LPM:__93_%:___% via n/c (mask/nasal cannula, etc..) No further documentation is necessary. If O2 Sat did not drop below 89% on room air,ambulate patient on room air. O2 Sat while ambulating on room air:___% Recovery O2 Sat while ambulating on ___LPM:___% No further documentation is necessary. If patient does not drop below 89% while ambulating, he/she does not qualify for home O2.
[2021-07-14 11:00] VITALS: BP 131/97
[2021-07-14] MEDS: VANCOmycin 1250MG/NS 250ml Bag 250 ML IV SCH (11:34)
[2021-07-14] MEDS: LORazepam 2 mg/ml vial IV PRN (11:34)
--- NOTE | 2021-07-14 12:33 | NUR ---
PAGED CM PER DAUGHTER LOREN'S REQUEST. DAUGHTER STATES SHE HAS ASKED SEVERAL TIMES TO SPEAK WITH CM AND IS UPSET.
[2021-07-14] MEDS ORDERED: LORazepam 2 mg/ml vial IV PRN (12:45)
--- NOTE | 2021-07-14 13:00 | NUR ---
Hospitalist rounded on pt. Her previous plan was to discharge pt, but she stated she spoke with Negro who recommended pt. not be discharged today. Discharge on hold per hospitalist.
--- NOTE | 2021-07-14 15:26 | NUR ---
Pt. c/o uncomfortable bed hurting his back. very disgruntled. Bed bath given, linens changed, and daughter called to bring in home blankets/ pillows for pt comfort. Pt provided pain medication.
[2021-07-14 15:56] VITALS: BP 135/91
[2021-07-14 18:00] VITALS: BP 151/73
--- NOTE | 2021-07-14 18:16 | NUR ---
Gave report to Jenelle HANKINS
--- NOTE | 2021-07-14 18:20 | NUR ---
Patient in room COVID 05. I have received report from Maris HANKINS and had the opportunity to ask questions and assume patient care.
[2021-07-14] MEDS: docusate sod 100mg capsule PO SCH (21:35)
[2021-07-14] MEDS: ROPINIRole 0.25mg tablet PO SCH (21:36)
[2021-07-14 22:00] VITALS: BP 114/53
[2021-07-14] MEDS: insulin glargine (Lantus) pen - multi-dose SQ SCH (22:34)
[2021-07-15] MEDS: VANCOmycin 1250MG/NS 250ml Bag 250 ML IV SCH ×2 (00:42→11:00)
[2021-07-15 02:00] VITALS: BP 140/73
[2021-07-15 06:00] VITALS: BP 133/66
--- NOTE | 2021-07-15 06:35 | NUR ---
Problems reprioritized. Patient report given, questions answered & plan of care reviewed with Cadence HANKINS.
[2021-07-15] MEDS ORDERED: levoTHYROXINE 25mcg tablet PO SCH (07:00)
[2021-07-15] MEDS: lactose-reduced food (Ensure Enlive) - 237ml bottle PO SCH ×2 (08:00→13:30)
[2021-07-15 08:15] LABS: BASOPHILS # (AUTO) 0.1 X10'3 (0-0.2); BASOPHILS % (AUTO) 0.7 % (0-1); EOSINOPHILS % (AUTO) 0.1 % (0-6); HEMATOCRIT 47.9 % (42.0-52.0); HEMOGLOBIN 15.1 g/dl (14.0-17.9); LYMPHOCYTES # (AUTO) 0.6 X10'3 (1.1-4.8); LYMPHOCYTES % (AUTO) 4.9 % (21-51); MEAN CORPUSCULAR HGB CONC 31.4 g/dL (33.0-36.5); MEAN CORPUSCULAR VOLUME 92.2 FL (78-98); MEAN PLATELET VOLUME 9.4 FL (7.4-10.4); MONOCYTES # (AUTO) 0.6 X10'3 (0-0.9); MONOCYTES % (AUTO) 4.7 % (2-12); NEUTROPHILS # (AUTO) 10.7 X10'3 (1.8-7.7); NEUTROPHILS % (AUTO) 89.6 % (42-75); PLATELET COUNT 180 X10'3 (140-440); RED CELL DISTRIBUTION WIDTH 15.4 % (11.5-14.5); WHITE BLOOD COUNT 11.9 X10'3 (4.5-11.0)
[2021-07-15 08:42] LABS: ALANINE AMINOTRANSFERASE 84 U/L (12-78); ALBUMIN/GLOBULIN RATIO 0.6 (1.1-1.5); ALKALINE PHOSPHATASE 66 IU/L (46-116); ANION GAP 8 (8-16); ASPARTATE AMINO TRANSFERASE 40 U/L (10-37); BILIRUBIN,TOTAL 0.6 MG/DL (0.1-1.0); BLOOD UREA NITROGEN 36 MG/DL (7-18); BUN/CREATININE RATIO 40.9 (5.4-32.0); CALCIUM 8.6 MG/DL (8.5-10.1); CHLORIDE 111 MMOL/L (99-107); CREATININE 0.88 MG/DL (0.60-1.10); GLUCOSE 91 MG/DL (70-104); POTASSIUM 4.9 MMOL/L (3.5-5.1); SODIUM 146 MMOL/L (135-145); TOTAL PROTEIN 5.6 G/DL (6.4-8.2); eGFR 84 ML/MIN
[2021-07-15] MEDS: pravastatin 40mg tablet PO SCH (08:57)
[2021-07-15] MEDS: gabapentin 400mg capsule PO SCH (08:57)
[2021-07-15] MEDS: lisinopril 20mg tablet PO SCH (08:58)
[2021-07-15] MEDS: famotidine 20mg tablet PO SCH (08:58)
[2021-07-15] MEDS: docusate sod 100mg capsule PO SCH (08:58)
[2021-07-15] MEDS: tamsulosin 0.4mg capsule PO SCH (08:58)
[2021-07-15] MEDS: lactobacillus rhamnosus 10,000 MMU CELLS/CAPSULE PO SCH (08:58)
[2021-07-15] MEDS: allopurinol 300 MG tablet PO SCH (08:58)
[2021-07-15] MEDS: methylPREDNISolone sod succ 125mg/2ml vial IV SCH (08:59)
[2021-07-15] MEDS: cefepime 2g/NS 100ml ADVANTAGE 100 ML IV SCH (08:59)
[2021-07-15] MEDS: enoxaparin 30mg/0.3ml syringe SQ SCH (09:00)
[2021-07-15] MEDS: amiodarone 200mg tablet PO SCH (09:00)
[2021-07-15 09:38] LABS: PLATELET ESTIMATE NORMAL; TOTAL CELLS COUNTED 100
[2021-07-15 10:00] VITALS: BP 129/79
[2021-07-15] MEDS: insulin Lispro (HumaLOG) vial - multi-dose SQ SCH (10:09)
--- NOTE | 2021-07-15 10:45 | NUR ---
Pt's family calling several times, asking about setting up everything needed for pt to be DC. Spoke to Dr Prado, she states Dr Arango has to approve the DC. Pt is insisting of leaving now.Family members continue to call, want everything taken care of, O2, meds etc. on case pt wants go AMA they have all they need. Explained that if Pt is Dc he gets all medications and instructions. If pt leaves AMA he does not get meds. family upset want to talk to
--- NOTE | 2021-07-15 11:30 | NUR ---
PT REFUSED HIS ANTIBIOTIC VANCO, HE STATES HE IS LEAVING AMA, CUSSING, ARGUING AND REFUSING CARE. SPOKE TO DAUGHTER/PURCHASING MANAGER. DAUGHTER STATES HE WILL NOT CHANGE HIS MIND AND HE JUST NEEDS TO BE DC. WILL PAGE DR NASH AND DR ALMAZAN. CHARGE TARIQ IS AWARE.
[2021-07-15 14:42] LABS: ABG BASE EXCESS 1.4 mmol/L (-2.0-2.0); ABG HCO3 24.1 mmol/L (22.0-26.0); ABG OXYGEN SATURATION 93.8 % (94-97); ABG PCO2 (T) 32.8 mmHg (35.0-48.0); ABG PO2 (T) 65.8 mmHg (75.0-100.0); ALLEN'S TEST POSITIVE; FCOHb 0.5 % (0.0-3.9); FLOW 6 L/min; FMetHb 0.1 % (0.0-1.5); FO2Hb 93.2 % (94-97); TOTAL HEMOGLOBIN 14.8 G/dl (14.0-18.0)
--- NOTE | 2021-07-15 15:16 | NUR ---
PAGER ID: [phone] MESSAGE: Deshawn Morrow#5B covid - Pt's ABG's resulted, Pt refusing care, dropped him to 5L, holding on at 95%. If O2 stats stay, pt would like to go hm. Never heard from Dr Weems. Thank you. Cadence Schroeder [phone]
[2021-07-15 16:23] LABS: D-DIMER 0.75 MG/L FEU (0-0.50)
--- NOTE | 2021-07-15 16:55 | NUR ---
PT SIGNED HIMSELF AMA. SPOKE TO DR NASH AND DR ALMZAAN, BOTH DOCTORS AGREE THAT PT NEEDS TO NE HERE A BIT LONGER, PT DISAGREED. PT'S FAMILY DECIDED TO GO AHEAD WITH AMA PROCESS, BOT FAMILY AND PT WERE ADVISED THAT PT WILL NOT BE GIVEN MEDICATIONS OR DC PAPERS. PT ANGRY BECAUSE THEY BELIEVE THAT WEATHER DC OR NOT PT SHOULD GO HOME WITH MEDICATIONS. PT STATES HE DOES NOT CARE IF HE GETS WORSE, HE HAS THE MONEY TOP BUY A MACHINE RESPIRATOR IF NEEDED TO FROM ANYWHERE IN THE WORLD BY TOMORROW. CURSING AND ANGRY AT DOCTORS AND NURSES. PT IS A & O X4. VERBALIZES UNDERSTANDING OF CONSEQUENCES OF AMA. CHARGE IS AWARE. pT HAD A HUGE LARGE BLACK BAG WITH COMFORTER, PILLOW, BLANKETS, PICTURE FRAMES, ASSEMBLER UTILITY BUILDINGS, PHONE AND PIC WITH ELECTRONIC DISPLAY ALL PACKED AND SEND AWAY WITH PT.
== END 2021-07-15 16:45 | disposition left against medical advice (07) | DRG 177 ==
LOC: ER 12:59 → ED HOLD 13:58 → COVID IP 16:45
PROVIDERS: ADMIT Family Medicine; ATTEND Family Medicine
PROC: 5A0945A Assistance with Respiratory Ventilation, 24-96 Consecutive Hours, High Flow/Velocity Cannula (ICD-10-PCS; principal; 2021-06-29)
PROC: 5A0935A Assistance with Respiratory Ventilation, Less than 24 Consecutive Hours, High Flow/Velocity Cannula (ICD-10-PCS; 2021-07-04)
PROC: 5A0945A Assistance with Respiratory Ventilation, 24-96 Consecutive Hours, High Flow/Velocity Cannula (ICD-10-PCS; 2021-07-05)
PROC: 5A09357 Assistance with Respiratory Ventilation, Less than 24 Consecutive Hours, Continuous Positive Airway Pressure (ICD-10-PCS; 2021-07-05)
PROC: 5A09357 Assistance with Respiratory Ventilation, Less than 24 Consecutive Hours, Continuous Positive Airway Pressure (ICD-10-PCS; 2021-07-06)
PROC: 5A09457 Assistance with Respiratory Ventilation, 24-96 Consecutive Hours, Continuous Positive Airway Pressure (ICD-10-PCS; 2021-07-07)
PROC: 5A09357 Assistance with Respiratory Ventilation, Less than 24 Consecutive Hours, Continuous Positive Airway Pressure (ICD-10-PCS; 2021-07-10)
PROC: 5A09357 Assistance with Respiratory Ventilation, Less than 24 Consecutive Hours, Continuous Positive Airway Pressure (ICD-10-PCS; 2021-07-11)
PROC: 5A0935A Assistance with Respiratory Ventilation, Less than 24 Consecutive Hours, High Flow/Velocity Cannula (ICD-10-PCS; 2021-07-13)
PROC: 5A0935A Assistance with Respiratory Ventilation, Less than 24 Consecutive Hours, High Flow/Velocity Cannula (ICD-10-PCS; 2021-07-14)
DX: U07.1 COVID-19 (principal); J96.01 Acute respiratory failure with hypoxia; J12.82 Pneumonia due to coronavirus disease 2019; N17.0 Acute kidney failure with tubular necrosis; E87.0 Hyperosmolality and hypernatremia; I47.2 Ventricular tachycardia; Z53.29 Procedure and treatment not carried out because of patient's decision for other reasons; E11.22 Type 2 diabetes mellitus with diabetic chronic kidney disease; N18.30 Chronic kidney disease, stage 3 unspecified; M54.9 Dorsalgia, unspecified; I12.9 Hypertensive chronic kidney disease with stage 1 through stage 4 chronic kidney disease, or unspecified chronic kidney disease; G47.30 Sleep apnea, unspecified; E87.6 Hypokalemia; G89.29 Other chronic pain; Z66 Do not resuscitate; E03.9 Hypothyroidism, unspecified; E66.01 Morbid (severe) obesity due to excess calories; E78.00 Pure hypercholesterolemia, unspecified; E78.5 Hyperlipidemia, unspecified; T38.0X5A Adverse effect of glucocorticoids and synthetic analogues, initial encounter; Z68.35 Body mass index [BMI] 35.0-35.9, adult; Z79.84 Long term (current) use of oral hypoglycemic drugs; Z90.49 Acquired absence of other specified parts of digestive tract
CPT/HCPCS: 36415; 36600; 71045; 80048; 80053; 80202; 82803; 82947; 82948; 83036; 83605; 83615; 83880; 84145; 84439; 84443; 84484; 85007; 85008; 85018; 85025; 85379; 86140; 87040; 87077; 87081; 87186; 92508; 92616; 93005; 93306; 94660; 94760; 96374; 97116; 97162; 97530; 99291; G0378; J0692; J1100; J1120; J1650; J1815; J1940; J2060; J2930; J3370; J7030; J7070